=== PATIENT | female | born 1980 | race Caucasian/White ===

== ENCOUNTER 2017-01-14 21:21 | Emergency (ER) | payer BC, OTHER ==
[~2017-01-14] VITALS: Ht 160 cm; Wt 79.4 kg
[2017-01-14 21:27] VITALS: BP 133/80
--- NOTE | 2017-01-14 21:41 | NUR ---
WENT TO BRING PATIENT TO ER BED, PATIENT STATES SHE DOES NOT WANT TO BE SEEN BY ER MD, AND WANT TO GO BE SEEN BY HER PMD IN THE MORNING. PATIENT THEN WENT TO SO WAITING AND STATES SHE IS WAITING FOR HER RIDE HOME.
== END 2017-01-14 22:23 | disposition left against medical advice (07) ==
LOC: ER 21:24
DX: Z53.21 Procedure and treatment not carried out due to patient leaving prior to being seen by health care provider (principal)
CPT/HCPCS: A4606; Z7610